=== PATIENT | male | born 1945 | race Caucasian/White ===

== ENCOUNTER 2022-02-15 12:22 | Inpatient (IN) | payer OTHER ==
[2022-02-15 12:51] LABS: Actual Bicarbonate (HCO3a) 17.4 mEq/L (22-28); Base Excess (BEa) -6.5 mEq/L (-2.0 to +3.0); CO2 Tension 29.6 mmHg (35.0-45.0); O2 Tension (PaO2), arterial 65.8 mmHg (> 70.0); pH, Arterial 7.39 (7.35-7.45)
[2022-02-15 12:52] LABS: Carboxyhemoglobin (COHb) 0.3 gm% (0.0-3.0); Hemoglobin (Hb) 10.7 g/dL (14.0-18.0)
[2022-02-15] MEDS ORDERED: Dexamethasone 10 MG/ML VIAL ONE (12:52)
[2022-02-15 12:53] LABS: Analyzer IN Cardio ER; Calcium, Ionized (arterial) 1.16 mmol/L (1.12-1.30); Potassium - ABG Lab 5.24 mmol/L (3.70-5.30); Puncture Site LRA
[2022-02-15 12:55] LABS: Hemoglobin 10.3 g/dL (14.0-18.0); Mean Corpuscular HGB CONC 31.9 g/dL (32.0-36.0); Mean Corpuscular Hemoglobin 30.1 pg (27.0-31.0); Mean Corpuscular Volume 94.2 fL (78.0-98.0); Mean Platelet Volume 8.7 fL (7.4-10.4); Platelet Count 202 thou/uL (130-400); RBC Distribution Width 12.9 % (11.5-14.5); Red Blood Cell (RBC) Count 3.43 mill/uL (4.70-6.10); White Blood Cell (WBC) Count 22.5 thou/uL (4.8-10.8)
[2022-02-15 13:14] LABS: Band 5 % (5-11); Lymphocytes 5 % (21-51); MDiff Complete? YES; Monocytes 3 % (0-10); Neutrophil 87 % (42-75); Platelet Clumps SLIGHT; Platelet Morphology Comment Appears Adequate; Polychromasia SLIGHT = 2-3 cells (100X) (0-2/hpf)
[2022-02-15 13:40] LABS: ALT (SGPT) 16 U/L (8-55); AST (SGOT) 37 U/L (5-34); Alkaline Phosphatase 60 U/L (40-110); Anion Gap 19 mmol/L (10-20); BUN (Urea Nitrogen) 53 mg/dL (8.4-25.7); Bilirubin, Total 0.4 mg/dL (0.2-1.2); Calc. Creatinine Clearance 0 mL/min (70-130); Calcium 8.7 mg/dL (7.8-10.44); Carbon Dioxide 17 mmol/L (23-31); Chloride 109 mmol/L (98-107); Estimated GFR 47; Glucose 293 mg/dL (83-110); Potassium 5.6 mmol/L (3.5-5.1); Sodium 139 mmol/L (136-145)
[2022-02-15 13:47] LABS: CKMB 8.2 ng/mL (0-6.6)
[2022-02-15 15:56] LABS: Lactic Acid 3.4 mmol/L (0.5-2.2)
[2022-02-15] MEDS ORDERED: Sodium Chloride 0.9% 1,000 ML IV SCH (18:16)
[2022-02-15] MEDS ORDERED: Dextrose 50% Abboject 50 ML SYRINGE SLOW IVP PRN (18:16)
[2022-02-15] MEDS ORDERED: Bisacodyl 5 MG TAB PO PRN (18:16)
[2022-02-15] MEDS ORDERED: Benzonatate 100 MG CAP PO PRN (18:16)
[2022-02-15] MEDS ORDERED: REMDESIVIR 200 MG in Sodium Chloride 0.9% 250 ML 210 ML IV SCH (18:16)
[2022-02-15] MEDS ORDERED: Albuterol 200 PUFF (6.7GM INHALER) INH PRN (18:16)
[2022-02-15] MEDS ORDERED: Acetaminophen 325 MG TAB PO PRN (18:16)
[2022-02-15] MEDS ORDERED: Ondansetron PF 4 MG/2 ML Vial IVP PRN (18:16)
[2022-02-15] MEDS ORDERED: Dextrose 5% in Water 1,000 ML IV PRN (18:16)
[2022-02-15] MEDS ORDERED: Midazolam HCl 2 mg/2 ml Vial IVP SCH ×2 (19:00)
[2022-02-15] MEDS: Azithromycin 500 MG in Sodium Chloride 0.9% 250 ML 250 ML IVPB SCH (19:15)
[2022-02-15 19:24] LABS: ALT (SGPT) 20 U/L (8-55); AST (SGOT) 45 U/L (5-34); Albumin 3.3 g/dL (3.4-4.8); Alkaline Phosphatase 69 U/L (40-110); Bilirubin, Direct 0.2 mg/dL (0.1-0.3); Bilirubin, Total 0.4 mg/dL (0.2-1.2); Protein, Total 7.5 g/dL (5.8-8.1)
[2022-02-15 19:35] LABS: Troponin I 2.583 ng/mL (< 0.028)
[2022-02-15 19:35] LABS: Actual Bicarbonate (HCO3a) 14.8 mEq/L (22-28); Base Excess (BEa) -11.2 mEq/L (-2.0 to +3.0); CO2 Tension 33.8 mmHg (35.0-45.0); Calcium, Ionized (arterial) 1.19 mmol/L (1.12-1.30); Carboxyhemoglobin (COHb) 0.5 gm% (0.0-3.0); Hemoglobin (Hb) 11.2 g/dL (14.0-18.0); O2 Tension (PaO2), arterial 62.3 mmHg (> 70.0); Potassium - ABG Lab 5.27 mmol/L (3.70-5.30); pH, Arterial 7.26 (7.35-7.45)
[2022-02-15 20:29] LABS: Puncture Site LRA
[2022-02-15] MEDS ORDERED: Ventilator Sedation Protocol 1 EACH FS SCH (20:45)
[2022-02-15] MEDS ORDERED: Fentanyl BOLUS 250 ML IVPB PRN (21:00)
[2022-02-15] MEDS ORDERED: fentaNYL Citrate/PF 2,000 MCG in Sodium Chloride 0.9% 60 ML IV SCH (21:00)
[2022-02-15] MEDS ORDERED: Propofol BOLUS 1,000 MG/100 ML VIAL IV PRN (21:00)
[2022-02-15] MEDS ORDERED: Morphine 4 MG/ML VIAL SLOW IVP PRN (21:00)
[2022-02-15] MEDS ORDERED: DISCONTINUE PREVIOUS NARCOTIC PAIN MEDICATIONS AND BENZODIAZEPINES FS SCH (21:00)
[2022-02-15] MEDS: Atorvastatin Calcium 10 MG TAB PO SCH (21:29)
[2022-02-15 21:34] LABS: Actual Bicarbonate (HCO3a) 17.2 mEq/L (22-28); Base Excess (BEa) -13.6 mEq/L (-2.0 to +3.0); Carboxyhemoglobin (COHb) 0.1 gm% (0.0-3.0); Hemoglobin (Hb) 11.3 g/dL (14.0-18.0); O2 Tension (PaO2), arterial 81.9 mmHg (> 70.0); Potassium - ABG Lab 5.81 mmol/L (3.70-5.30)
[2022-02-15 21:38] LABS: CO2 Tension 64.5 mmHg (35.0-45.0); pH, Arterial 7.04 (7.35-7.45)
[2022-02-15 21:39] LABS: ALV-art Gradient 550.475 mmHg (0-20); Puncture Site RRA
[2022-02-15] MEDS: HumaLOG 300 UNITS/3 ML VIAL SC PRN (22:02)
[2022-02-15] MEDS: Midazolam HCl 2 mg/2 ml Vial SLOW IVP PRN (22:43)
[2022-02-15 23:51] LABS: Actual Bicarbonate (HCO3a) 14.1 mEq/L (22-28); Base Excess (BEa) -13.4 mEq/L (-2.0 to +3.0); CO2 Tension 38.8 mmHg (35.0-45.0); Calcium, Ionized (arterial) 1.17 mmol/L (1.12-1.30); Carboxyhemoglobin (COHb) 0.3 gm% (0.0-3.0); Hemoglobin (Hb) 10.3 g/dL (14.0-18.0); O2 Tension (PaO2), arterial 77.5 mmHg (> 70.0); Potassium - ABG Lab 5.74 mmol/L (3.70-5.30)
[2022-02-15 23:56] LABS: Puncture Site RRA; pH, Arterial 7.18 (7.35-7.45)
[2022-02-16 00:40] LABS: #Eosinphils 0.1 thou/uL (0.0-0.7); #Lymphocytes 0.6 thou/uL (1.20-3.40); %Basophils 0.1 % (0.0-1.0); %Eosinophils 0.3 % (0.0-10.0); %Lymphocytes 3.1 % (21.0-51.0); %Monocytes 5.8 % (0.0-10.0); %Neutrophils 90.7 % (42.0-75.0); Hemoglobin 9.1 g/dL (14.0-18.0); Mean Corpuscular HGB CONC 31.8 g/dL (32.0-36.0); Mean Corpuscular Hemoglobin 30.7 pg (27.0-31.0); Mean Corpuscular Volume 96.5 fL (78.0-98.0); Mean Platelet Volume 8.8 fL (7.4-10.4); Platelet Count 189 thou/uL (130-400); RBC Distribution Width 13.2 % (11.5-14.5); Red Blood Cell (RBC) Count 2.97 mill/uL (4.70-6.10); White Blood Cell (WBC) Count 17.6 thou/uL (4.8-10.8)
[2022-02-16 00:56] LABS: Lactic Acid 1.7 mmol/L (0.5-2.2)
[2022-02-16 01:00] LABS: Anion Gap 19 mmol/L (10-20); BUN (Urea Nitrogen) 61 mg/dL (8.4-25.7); Calc. Creatinine Clearance 57 mL/min (70-130); Calcium 8.4 mg/dL (7.8-10.44); Carbon Dioxide 13 mmol/L (23-31); Chloride 113 mmol/L (98-107); Estimated GFR 45; Glucose 364 mg/dL (83-110); Magnesium 2.1 mg/dL (1.6-2.6); Potassium 5.9 mmol/L (3.5-5.1); Sodium 139 mmol/L (136-145)
[2022-02-16 01:07] LABS: Critical Call Chem Troponin I RESULT DECREASING; Troponin I 1.745 ng/mL (< 0.028)
[2022-02-16] MEDS ORDERED: Furosemide 20 MG/2 ML VIAL SLOW IVP SCH (01:15)
[2022-02-16] MEDS ORDERED: Sodium Bicarb 50 MEQ/50 ML Abboject 8.4% SYRINGE IVP SCH (01:15)
[2022-02-16] MEDS ORDERED: Insulin Regular 300 UNITS/3 ML VIAL IVP SCH (01:30)
[2022-02-16] MEDS ORDERED: Calcium Gluconate 4.6 MEQ in Sodium Chloride 0.9% 100 ML IVPB SCH (01:30)
[2022-02-16] MEDS ORDERED: Sodium Bicarb 50 MEQ/50 ML VIAL IVP SCH (01:45)
[2022-02-16] MEDS ORDERED: CALCIUM GLUC 1GM/NS 50ML 1 GM in Premix Bag 1 BAG IVPB SCH (01:45)
[2022-02-16 04:31] LABS: ALT (SGPT) 28 U/L (8-55); AST (SGOT) 47 U/L (5-34); Albumin 2.5 g/dL (3.4-4.8); Alkaline Phosphatase 59 U/L (40-110); Bilirubin, Direct 0.1 mg/dL (0.1-0.3); Bilirubin, Total 0.2 mg/dL (0.2-1.2); Protein, Total 5.7 g/dL (5.8-8.1)
[2022-02-16 04:32] LABS: ALT (SGPT) 24 U/L (8-55); AST (SGOT) 46 U/L (5-34); Albumin 2.4 g/dL (3.4-4.8); Alkaline Phosphatase 58 U/L (40-110); Anion Gap 18 mmol/L (10-20); BUN (Urea Nitrogen) 63 mg/dL (8.4-25.7); Bilirubin, Total 0.2 mg/dL (0.2-1.2); Calc. Creatinine Clearance 59 mL/min (70-130); Carbon Dioxide 18 mmol/L (23-31); Chloride 114 mmol/L (98-107); Estimated GFR 46; Globulin 3.4 g/dL (2.4-3.5); Glucose 343 mg/dL (83-110); Magnesium 1.9 mg/dL (1.6-2.6); Potassium 4.8 mmol/L (3.5-5.1); Protein, Total 5.8 g/dL (5.8-8.1); Sodium 145 mmol/L (136-145)
[2022-02-16] MEDS: HumaLOG 300 UNITS/3 ML VIAL SC PRN ×4 (05:11→23:11)
[2022-02-16] MEDS: Propofol 1,000 MG/100 ML VIAL IV PRN ×4 (05:36→23:24)
[2022-02-16] MEDS ORDERED: Vecuronium 10 MG VIAL ONE (07:39)
[2022-02-16] MEDS ORDERED: Fentanyl CADD 100 ML ONE (07:40)
[2022-02-16 07:51] LABS: Actual Bicarbonate (HCO3a) 18.2 mEq/L (22-28); Base Excess (BEa) -6.7 mEq/L (-2.0 to +3.0); CO2 Tension 33.6 mmHg (35.0-45.0); Calcium, Ionized (arterial) 1.19 mmol/L (1.12-1.30); Carboxyhemoglobin (COHb) 0.3 gm% (0.0-3.0); Hemoglobin (Hb) 9.1 g/dL (14.0-18.0); O2 Tension (PaO2), arterial 62.9 mmHg (> 70.0); Potassium - ABG Lab 4.43 mmol/L (3.70-5.30); pH, Arterial 7.35 (7.35-7.45)
[2022-02-16 07:53] LABS: Puncture Site RRA
[2022-02-16] MEDS: Enoxaparin Sodium 40 MG/0.4 ML SYRINGE SC SCH (08:03)
[2022-02-16] MEDS: Ferrous Sulfate 325 MG TAB PO SCH (08:04)
[2022-02-16] MEDS: Ascorbic Acid 500 mg Chewable Tablet PO SCH (08:04)
[2022-02-16] MEDS: Clopidogrel Bisulfate 75 MG TAB PO SCH (08:04)
[2022-02-16] MEDS: Aspirin 81 mg Enteric Coated Tablet PO SCH (08:04)
[2022-02-16] MEDS: Cholecalciferol 1,000 UNITS (25 MCG) TAB PO SCH (08:04)
[2022-02-16] MEDS: Midazolam HCl 2 mg/2 ml Vial SLOW IVP PRN ×3 (08:11→13:44)
[2022-02-16] MEDS: Zinc Sulfate 220 MG CAP PO SCH (08:11)
[2022-02-16] MEDS ORDERED: Dexamethasone 10 MG/ML VIAL SLOW IVP SCH (09:00)
[2022-02-16] MEDS ORDERED: Vecuronium 10 MG VIAL IVP SCH (09:00)
[2022-02-16] MEDS ORDERED: Furosemide 40 MG/4 ML VIAL SLOW IVP SCH (09:00)
[2022-02-16] MEDS: BARICITINIB 2 MG TAB PO SCH (09:00)
[2022-02-16] MEDS ORDERED: Pioglitazone HCl 45 MG TAB PO SCH (09:00)
[2022-02-16] MEDS: Dexamethasone 10 MG/ML VIAL SLOW IVP SCH ×2 (09:36→19:42)
[2022-02-16] MEDS: Vecuronium Bromide 20 MG VIAL IV PRN ×2 (09:38→13:44)
[2022-02-16] MEDS: Azithromycin 500 MG in Sodium Chloride 0.9% 250 ML 250 ML IVPB SCH (17:06)
[2022-02-16] MEDS: cefTRIAXone\\ROCEPHIN 1 GM in Sodium Chloride 0.9% 100 ML IVPB SCH (17:06)
[2022-02-16] MEDS: REMDESIVIR 100 MG in Sodium Chloride 0.9% 250 ML 230 ML IV SCH (18:40)
[2022-02-16] MEDS: Atorvastatin Calcium 10 MG TAB PO SCH (19:25)
[2022-02-16] MEDS: Vecuronium 10 MG VIAL IV PRN (19:43)
[2022-02-16] MEDS ORDERED: Insulin Glargine 30 UNITS/0.3 ML VIAL SC SCH (21:00)
[2022-02-17] MEDS ORDERED: Fentanyl CADD 100 ML ONE (03:49)
[2022-02-17] MEDS: Propofol 1,000 MG/100 ML VIAL IV PRN ×5 (03:57→21:07)
[2022-02-17] MEDS: Vecuronium 10 MG VIAL IV PRN ×2 (03:57→09:07)
[2022-02-17 04:26] LABS: #Lymphocytes 0.5 thou/uL (1.20-3.40); #Monocytes 0.9 thou/uL (0.11-0.59); #Neutrophils 13.6 thou/uL (1.40-6.50); %Basophils 0.1 % (0.0-1.0); %Eosinophils 0.1 % (0.0-10.0); %Lymphocytes 3.3 % (21.0-51.0); %Neutrophils 90.4 % (42.0-75.0); Hemoglobin 9.1 g/dL (14.0-18.0); Mean Corpuscular HGB CONC 33.7 g/dL (32.0-36.0); Mean Corpuscular Hemoglobin 32.5 pg (27.0-31.0); Mean Corpuscular Volume 96.5 fL (78.0-98.0); Mean Platelet Volume 8.3 fL (7.4-10.4); Platelet Count 197 thou/uL (130-400); RBC Distribution Width 13.2 % (11.5-14.5); Red Blood Cell (RBC) Count 2.79 mill/uL (4.70-6.10)
[2022-02-17 04:27] LABS: Hemoglobin A1c 7.2 % (4.0-6.0)
[2022-02-17 04:40] LABS: ALT (SGPT) 26 U/L (8-55); AST (SGOT) 36 U/L (5-34); Albumin 2.5 g/dL (3.4-4.8); Alkaline Phosphatase 76 U/L (40-110); Anion Gap 16 mmol/L (10-20); BUN (Urea Nitrogen) 80 mg/dL (8.4-25.7); Bilirubin, Direct 0.1 mg/dL (0.1-0.3); Bilirubin, Total 0.3 mg/dL (0.2-1.2); Calc. Creatinine Clearance 55 mL/min (70-130); Calcium 8.8 mg/dL (7.8-10.44); Carbon Dioxide 20 mmol/L (23-31); Chloride 112 mmol/L (98-107); Estimated GFR 43; Globulin 3.8 g/dL (2.4-3.5); Glucose 309 mg/dL (83-110); Magnesium 2.1 mg/dL (1.6-2.6); Protein, Total 6.3 g/dL (5.8-8.1); Sodium 143 mmol/L (136-145)
[2022-02-17] MEDS: HumaLOG 300 UNITS/3 ML VIAL SC PRN ×3 (05:03→22:30)
[2022-02-17 07:40] LABS: Actual Bicarbonate (HCO3a) 19.3 mEq/L (22-28); Base Excess (BEa) -7.4 mEq/L (-2.0 to +3.0); CO2 Tension 44.2 mmHg (35.0-45.0); Calcium, Ionized (arterial) 1.21 mmol/L (1.12-1.30); Carboxyhemoglobin (COHb) 0.3 gm% (0.0-3.0); Hemoglobin (Hb) 9.1 g/dL (14.0-18.0); O2 Tension (PaO2), arterial 118.7 mmHg (> 70.0); Potassium - ABG Lab 4.48 mmol/L (3.70-5.30); pH, Arterial 7.26 (7.35-7.45)
[2022-02-17 07:41] LABS: Puncture Site LRA
[2022-02-17] MEDS: Ascorbic Acid 500 mg Chewable Tablet PO SCH (08:38)
[2022-02-17] MEDS: Clopidogrel Bisulfate 75 MG TAB PO SCH (08:38)
[2022-02-17] MEDS: Zinc Sulfate 220 MG CAP PO SCH (08:38)
[2022-02-17] MEDS: BARICITINIB 2 MG TAB PO SCH (08:38)
[2022-02-17] MEDS: Aspirin 81 mg Enteric Coated Tablet PO SCH (08:38)
[2022-02-17] MEDS: Ferrous Sulfate 325 MG TAB PO SCH (08:38)
[2022-02-17] MEDS: Enoxaparin Sodium 40 MG/0.4 ML SYRINGE SC SCH (08:39)
[2022-02-17] MEDS: Cholecalciferol 1,000 UNITS (25 MCG) TAB PO SCH (08:46)
[2022-02-17] MEDS: Dexamethasone 10 MG/ML VIAL SLOW IVP SCH ×2 (08:46→22:34)
[2022-02-17] MEDS: Midazolam HCl 2 mg/2 ml Vial SLOW IVP PRN (10:35)
[2022-02-17] MEDS: NPH, Human Insulin Isophane 300 UNIT/3 ML VIAL SC SCH ×2 (17:19→17:20)
[2022-02-17] MEDS: REMDESIVIR 100 MG in Sodium Chloride 0.9% 250 ML 230 ML IV SCH (18:55)
[2022-02-17] MEDS: cefTRIAXone\\ROCEPHIN 1 GM in Sodium Chloride 0.9% 100 ML IVPB SCH (18:55)
[2022-02-17] MEDS: Azithromycin 500 MG in Sodium Chloride 0.9% 250 ML 250 ML IVPB SCH (18:56)
[2022-02-17] MEDS: Atorvastatin Calcium 10 MG TAB PO SCH (22:34)
[2022-02-18] MEDS ORDERED: Fentanyl CADD 0 ML ONE (00:16)
[2022-02-18] MEDS: HumaLOG 300 UNITS/3 ML VIAL SC PRN ×4 (00:18→16:41)
[2022-02-18] MEDS ORDERED: Insulin NPH Human Isophane 100 UNIT/ML (10 ML VIAL) SC SCH (00:30)
[2022-02-18] MEDS ORDERED: Fentanyl CADD 100 ML ONE (00:33)
[2022-02-18] MEDS: Fentanyl CADD 100 ML IV SCH ×2 (00:37→20:38)
[2022-02-18] MEDS: Propofol 1,000 MG/100 ML VIAL IV PRN ×5 (01:48→17:42)
[2022-02-18 05:09] LABS: Mean Corpuscular HGB CONC 32.6 g/dL (32.0-36.0); Mean Corpuscular Volume 94.9 fL (78.0-98.0); Mean Platelet Volume 8.6 fL (7.4-10.4); Platelet Count 203 thou/uL (130-400); RBC Distribution Width 13.2 % (11.5-14.5); White Blood Cell (WBC) Count 9.6 thou/uL (4.8-10.8)
[2022-02-18 05:51] LABS: ALT (SGPT) 25 U/L (8-55); AST (SGOT) 27 U/L (5-34); Albumin 2.4 g/dL (3.4-4.8); Alkaline Phosphatase 78 U/L (40-110); Anion Gap 17 mmol/L (10-20); BUN (Urea Nitrogen) 103 mg/dL (8.4-25.7); Bilirubin, Direct 0.1 mg/dL (0.1-0.3); Bilirubin, Total 0.2 mg/dL (0.2-1.2); Calc. Creatinine Clearance 49 mL/min (70-130); Calcium 8.7 mg/dL (7.8-10.44); Carbon Dioxide 18 mmol/L (23-31); Chloride 110 mmol/L (98-107); Estimated GFR 37; Glucose 389 mg/dL (83-110); Magnesium 2.4 mg/dL (1.6-2.6); Potassium 4.4 mmol/L (3.5-5.1); Protein, Total 6.1 g/dL (5.8-8.1); Sodium 141 mmol/L (136-145)
[2022-02-18] MEDS: Insulin NPH Human Isophane 100 UNIT/ML (10 ML VIAL) SC SCH ×5 (06:32→23:25)
[2022-02-18 07:34] LABS: Actual Bicarbonate (HCO3a) 22.1 mEq/L (22-28); Base Excess (BEa) -4.1 mEq/L (-2.0 to +3.0); Calcium, Ionized (arterial) 1.22 mmol/L (1.12-1.30); Carboxyhemoglobin (COHb) 0.3 gm% (0.0-3.0); Hemoglobin (Hb) 10.5 g/dL (14.0-18.0); O2 Tension (PaO2), arterial 70.2 mmHg (> 70.0); Potassium - ABG Lab 4.41 mmol/L (3.70-5.30); pH, Arterial 7.31 (7.35-7.45)
[2022-02-18 07:36] LABS: Puncture Site LRA
[2022-02-18] MEDS: NPH, Human Insulin Isophane 300 UNIT/3 ML VIAL SC SCH (08:31)
[2022-02-18] MEDS: Enoxaparin Sodium 40 MG/0.4 ML SYRINGE SC SCH (09:38)
[2022-02-18] MEDS: Pantoprazole 40 MG VIAL IVP SCH (09:38)
[2022-02-18] MEDS: Ascorbic Acid 500 mg Chewable Tablet PO SCH (09:39)
[2022-02-18] MEDS: Dexamethasone 10 MG/ML VIAL SLOW IVP SCH ×2 (09:39→21:27)
[2022-02-18] MEDS: Cholecalciferol 1,000 UNITS (25 MCG) TAB PO SCH (09:40)
[2022-02-18] MEDS: Zinc Sulfate 220 MG CAP PO SCH (09:40)
[2022-02-18] MEDS: Ferrous Sulfate 325 MG TAB PO SCH (09:40)
[2022-02-18] MEDS: Clopidogrel Bisulfate 75 MG TAB PO SCH (09:40)
[2022-02-18] MEDS: Aspirin 81 mg Enteric Coated Tablet PO SCH (09:40)
[2022-02-18] MEDS: BARICITINIB 2 MG TAB PO SCH (09:40)
[2022-02-18] MEDS: Cefepime 1 GM in Sodium Chloride 0.9% 100 ML IVPB SCH ×2 (10:55→23:26)
[2022-02-18] MEDS ORDERED: Furosemide 40 MG/4 ML VIAL SLOW IVP SCH (11:00)
[2022-02-18] MEDS ORDERED: VANCOMYCIN 2 GRAM/500 ML BAG 2 GM in Premix Bag 1 BAG IVPB SCH (12:00)
[2022-02-18] MEDS: metroNIDAZOLE 500 MG in Premix Bag 1 BAG IVPB SCH ×2 (14:09→21:42)
[2022-02-18] MEDS: REMDESIVIR 100 MG in Sodium Chloride 0.9% 250 ML 230 ML IV SCH (18:02)
[2022-02-18] MEDS: Midazolam HCl 2 mg/2 ml Vial SLOW IVP PRN (19:40)
[2022-02-18] MEDS ORDERED: Vancomycin 1 GM in Premix Bag 1 BAG IVPB SCH (21:00)
[2022-02-18] MEDS: Atorvastatin Calcium 10 MG TAB PO SCH (21:27)
[2022-02-19] MEDS: Propofol 1,000 MG/100 ML VIAL IV PRN ×4 (00:52→13:28)
[2022-02-19 04:28] LABS: Hemoglobin 11.3 g/dL (14.0-18.0); Mean Corpuscular HGB CONC 32.3 g/dL (32.0-36.0); Mean Corpuscular Hemoglobin 30.4 pg (27.0-31.0); Mean Corpuscular Volume 93.9 fL (78.0-98.0); Platelet Count 223 thou/uL (130-400); RBC Distribution Width 13.4 % (11.5-14.5); Red Blood Cell (RBC) Count 3.71 mill/uL (4.70-6.10); White Blood Cell (WBC) Count 13.9 thou/uL (4.8-10.8)
[2022-02-19 04:51] LABS: ALT (SGPT) 24 U/L (8-55); AST (SGOT) 31 U/L (5-34); Albumin 2.4 g/dL (3.4-4.8); Alkaline Phosphatase 73 U/L (40-110); Anion Gap 18 mmol/L (10-20); BUN (Urea Nitrogen) 117 mg/dL (8.4-25.7); Bilirubin, Direct 0.1 mg/dL (0.1-0.3); Bilirubin, Total 0.2 mg/dL (0.2-1.2); Calc. Creatinine Clearance 44 mL/min (70-130); Calcium 8.7 mg/dL (7.8-10.44); Carbon Dioxide 19 mmol/L (23-31); Chloride 112 mmol/L (98-107); Estimated GFR 32; Glucose 347 mg/dL (83-110); Potassium 4.8 mmol/L (3.5-5.1); Protein, Total 6.6 g/dL (5.8-8.1); Sodium 144 mmol/L (136-145)
[2022-02-19] MEDS: HumaLOG 300 UNITS/3 ML VIAL SC PRN ×4 (05:02→21:56)
[2022-02-19] MEDS: Insulin NPH Human Isophane 100 UNIT/ML (10 ML VIAL) SC SCH ×3 (05:11→17:00)
[2022-02-19] MEDS: metroNIDAZOLE 500 MG in Premix Bag 1 BAG IVPB SCH ×3 (05:12→21:20)
[2022-02-19] MEDS ORDERED: Fentanyl CADD 100 ML ONE (06:59)
[2022-02-19] MEDS: Ferrous Sulfate 325 MG TAB PO SCH (07:07)
[2022-02-19 07:53] LABS: Actual Bicarbonate (HCO3a) 22.6 mEq/L (22-28); Base Excess (BEa) -3.9 mEq/L (-2.0 to +3.0); CO2 Tension 47.1 mmHg (35.0-45.0); Calcium, Ionized (arterial) 1.22 mmol/L (1.12-1.30); Carboxyhemoglobin (COHb) 0.3 gm% (0.0-3.0); Hemoglobin (Hb) 10.1 g/dL (14.0-18.0); Potassium - ABG Lab 4.37 mmol/L (3.70-5.30)
[2022-02-19 08:09] LABS: O2 Tension (PaO2), arterial 56.1 mmHg (> 70.0)
[2022-02-19 08:10] LABS: ALV-art Gradient 277.175 mmHg (0-20); Puncture Site RRA
[2022-02-19] MEDS: Zinc Sulfate 220 MG CAP PO SCH (09:43)
[2022-02-19] MEDS: Aspirin 81 mg Enteric Coated Tablet PO SCH (09:43)
[2022-02-19] MEDS: Enoxaparin Sodium 40 MG/0.4 ML SYRINGE SC SCH (09:43)
[2022-02-19] MEDS: Pantoprazole 40 MG VIAL IVP SCH (09:43)
[2022-02-19] MEDS: Ascorbic Acid 500 mg Chewable Tablet PO SCH (09:43)
[2022-02-19] MEDS: Clopidogrel Bisulfate 75 MG TAB PO SCH (09:51)
[2022-02-19] MEDS: Dexamethasone 10 MG/ML VIAL SLOW IVP SCH ×2 (09:51→21:20)
[2022-02-19] MEDS: Cholecalciferol 1,000 UNITS (25 MCG) TAB PO SCH (09:51)
[2022-02-19] MEDS: Cefepime 1 GM in Sodium Chloride 0.9% 100 ML IVPB SCH ×2 (10:14→21:27)
[2022-02-19] MEDS ORDERED: VANCOMYCIN 1.25 GM/250 ML BAG 1.25 GM in Premix Bag 1 BAG IVPB SCH (12:00)
[2022-02-19] MEDS: REMDESIVIR 100 MG in Sodium Chloride 0.9% 250 ML 230 ML IV SCH (17:01)
[2022-02-19] MEDS ORDERED: Insulin NPH Human Isophane 100 UNIT/ML (10 ML VIAL) SC SCH (18:30)
[2022-02-19] MEDS: Atorvastatin Calcium 10 MG TAB PO SCH (21:20)
[2022-02-20] MEDS: Insulin NPH Human Isophane 100 UNIT/ML (10 ML VIAL) SC SCH ×4 (00:19→18:26)
[2022-02-20] MEDS: Propofol 1,000 MG/100 ML VIAL IV PRN ×4 (00:30→21:11)
[2022-02-20] MEDS: Fentanyl CADD 100 ML IV SCH ×2 (00:30→16:30)
[2022-02-20] MEDS: HumaLOG 300 UNITS/3 ML VIAL SC PRN ×4 (04:14→22:15)
[2022-02-20] MEDS: metroNIDAZOLE 500 MG in Premix Bag 1 BAG IVPB SCH ×3 (06:22→21:12)
[2022-02-20 07:24] LABS: Actual Bicarbonate (HCO3a) 21.2 mEq/L (22-28); Base Excess (BEa) -3.4 mEq/L (-2.0 to +3.0); CO2 Tension 36.1 mmHg (35.0-45.0); Calcium, Ionized (arterial) 1.21 mmol/L (1.12-1.30); Carboxyhemoglobin (COHb) 0.4 gm% (0.0-3.0); Hemoglobin (Hb) 9.3 g/dL (14.0-18.0); O2 Tension (PaO2), arterial 70.3 mmHg (> 70.0); pH, Arterial 7.39 (7.35-7.45)
[2022-02-20 07:25] LABS: ALV-art Gradient 198.295 mmHg (0-20); Puncture Site RRA
[2022-02-20] MEDS: Dexamethasone 10 MG/ML VIAL SLOW IVP SCH ×2 (08:52→21:10)
[2022-02-20] MEDS: Enoxaparin Sodium 40 MG/0.4 ML SYRINGE SC SCH (08:52)
[2022-02-20] MEDS: Pantoprazole 40 MG VIAL IVP SCH (08:52)
[2022-02-20] MEDS: Ascorbic Acid 500 mg Chewable Tablet PO SCH (08:53)
[2022-02-20] MEDS: Zinc Sulfate 220 MG CAP PO SCH (08:53)
[2022-02-20] MEDS: Clopidogrel Bisulfate 75 MG TAB PO SCH (08:53)
[2022-02-20] MEDS: Cholecalciferol 1,000 UNITS (25 MCG) TAB PO SCH (08:53)
[2022-02-20] MEDS: Ferrous Sulfate 325 MG TAB PO SCH (08:54)
[2022-02-20] MEDS: Aspirin 81 mg Enteric Coated Tablet PO SCH (08:54)
[2022-02-20] MEDS: Cefepime 1 GM in Sodium Chloride 0.9% 100 ML IVPB SCH ×2 (10:32→21:10)
[2022-02-20] MEDS: Atorvastatin Calcium 10 MG TAB PO SCH (21:10)
[2022-02-21] MEDS: Insulin NPH Human Isophane 100 UNIT/ML (10 ML VIAL) SC SCH ×5 (00:07→22:27)
[2022-02-21] MEDS: Propofol 1,000 MG/100 ML VIAL IV PRN ×5 (03:01→17:07)
[2022-02-21] MEDS: HumaLOG 300 UNITS/3 ML VIAL SC PRN ×2 (03:39→10:10)
[2022-02-21 04:26] LABS: ALT (SGPT) 19 U/L (8-55); AST (SGOT) 21 U/L (5-34); Albumin 2.2 g/dL (3.4-4.8); Alkaline Phosphatase 72 U/L (40-110); Anion Gap 14 mmol/L (10-20); Bilirubin, Total 0.3 mg/dL (0.2-1.2); Calc. Creatinine Clearance 47 mL/min (70-130); Calcium 8.2 mg/dL (7.8-10.44); Carbon Dioxide 20 mmol/L (23-31); Chloride 118 mmol/L (98-107); Estimated GFR 36; Globulin 3.8 g/dL (2.4-3.5); Glucose 257 mg/dL (83-110); Potassium 4.7 mmol/L (3.5-5.1); Sodium 147 mmol/L (136-145)
[2022-02-21 04:38] LABS: BUN (Urea Nitrogen) 109 mg/dL (8.4-25.7)
[2022-02-21] MEDS: metroNIDAZOLE 500 MG in Premix Bag 1 BAG IVPB SCH ×3 (05:00→22:00)
[2022-02-21 05:05] LABS: Band 9 % (5-11); Hemoglobin 9.9 g/dL (14.0-18.0); Lymphocytes 3 % (21-51); MDiff Complete? YES; Mean Corpuscular Hemoglobin 30.2 pg (27.0-31.0); Mean Corpuscular Volume 94.3 fL (78.0-98.0); Mean Platelet Volume 8.4 fL (7.4-10.4); Monocytes 3 % (0-10); Myelocyte 3 % (0-0); Neutrophil 82 % (42-75); Platelet Count 218 thou/uL (130-400); RBC Distribution Width 13.3 % (11.5-14.5); Red Blood Cell (RBC) Count 3.27 mill/uL (4.70-6.10); White Blood Cell (WBC) Count 14.1 thou/uL (4.8-10.8)
[2022-02-21 05:15] LABS: Magnesium 2.8 mg/dL (1.6-2.6)
[2022-02-21 07:43] LABS: Base Excess (BEa) -5.8 mEq/L (-2.0 to +3.0); CO2 Tension 40.2 mmHg (35.0-45.0); Calcium, Ionized (arterial) 1.26 mmol/L (1.12-1.30); Carboxyhemoglobin (COHb) 0.5 gm% (0.0-3.0); Hemoglobin (Hb) 11.3 g/dL (14.0-18.0); O2 Tension (PaO2), arterial 86.3 mmHg (> 70.0); Potassium - ABG Lab 4.27 mmol/L (3.70-5.30); pH, Arterial 7.31 (7.35-7.45)
[2022-02-21 07:44] LABS: Puncture Site RRA
[2022-02-21] MEDS ORDERED: Diltiazem 125 MG in Sodium Chloride 0.9% 100 ML IVPB SCH (08:15)
[2022-02-21] MEDS ORDERED: Fentanyl CADD 100 ML ONE (09:09)
[2022-02-21] MEDS: Pantoprazole 40 MG VIAL IVP SCH (09:16)
[2022-02-21] MEDS: Zinc Sulfate 220 MG CAP PO SCH (09:18)
[2022-02-21] MEDS: Dexamethasone 10 MG/ML VIAL SLOW IVP SCH ×2 (09:18→21:59)
[2022-02-21] MEDS: Aspirin 81 mg Enteric Coated Tablet PO SCH (09:19)
[2022-02-21] MEDS: Ferrous Sulfate 325 MG TAB PO SCH (09:19)
[2022-02-21] MEDS: Clopidogrel Bisulfate 75 MG TAB PO SCH (09:20)
[2022-02-21] MEDS: Cholecalciferol 1,000 UNITS (25 MCG) TAB PO SCH (09:20)
[2022-02-21] MEDS: Ascorbic Acid 500 mg Chewable Tablet PO SCH (09:20)
[2022-02-21] MEDS: Enoxaparin Sodium 40 MG/0.4 ML SYRINGE SC SCH (09:22)
[2022-02-21] MEDS: Cefepime 1 GM in Sodium Chloride 0.9% 100 ML IVPB SCH ×2 (09:58→21:58)
[2022-02-21] MEDS: Enoxaparin Sodium 100 MG/ML SYRINGE SC SCH (21:59)
[2022-02-21] MEDS: Atorvastatin Calcium 10 MG TAB PO SCH (21:59)
[2022-02-22] MEDS: Propofol 1,000 MG/100 ML VIAL IV PRN ×3 (01:14→16:15)
[2022-02-22] MEDS: metroNIDAZOLE 500 MG in Premix Bag 1 BAG IVPB SCH ×3 (05:35→22:12)
[2022-02-22] MEDS: Fentanyl CADD 100 ML IV SCH (05:36)
[2022-02-22 08:14] LABS: Actual Bicarbonate (HCO3a) 19.4 mEq/L (22-28); Base Excess (BEa) -6.1 mEq/L (-2.0 to +3.0); Calcium, Ionized (arterial) 1.22 mmol/L (1.12-1.30); Carboxyhemoglobin (COHb) 0.7 gm% (0.0-3.0); Hemoglobin (Hb) 11.8 g/dL (14.0-18.0); O2 Tension (PaO2), arterial 64.7 mmHg (> 70.0); Potassium - ABG Lab 4.51 mmol/L (3.70-5.30); pH, Arterial 7.33 (7.35-7.45)
[2022-02-22] MEDS: Insulin NPH Human Isophane 100 UNIT/ML (10 ML VIAL) SC SCH ×3 (08:16→18:19)
[2022-02-22 08:19] LABS: Puncture Site RRA
[2022-02-22] MEDS: Cholecalciferol 1,000 UNITS (25 MCG) TAB PO SCH (09:19)
[2022-02-22] MEDS: Dexamethasone 10 MG/ML VIAL SLOW IVP SCH (09:19)
[2022-02-22] MEDS: Ascorbic Acid 500 mg Chewable Tablet PO SCH (09:19)
[2022-02-22] MEDS: Enoxaparin Sodium 100 MG/ML SYRINGE SC SCH ×2 (09:19→21:28)
[2022-02-22] MEDS: Pantoprazole 40 MG VIAL IVP SCH (09:19)
[2022-02-22] MEDS: Zinc Sulfate 220 MG CAP PO SCH (09:19)
[2022-02-22] MEDS: Ferrous Sulfate 325 MG TAB PO SCH (09:19)
[2022-02-22] MEDS: Clopidogrel Bisulfate 75 MG TAB PO SCH (09:19)
[2022-02-22] MEDS: Aspirin 81 mg Enteric Coated Tablet PO SCH (09:19)
[2022-02-22 10:41] LABS: Anion Gap 14 mmol/L (10-20); BUN (Urea Nitrogen) 124 mg/dL (8.4-25.7); Calc. Creatinine Clearance 55 mL/min (70-130); Calcium 8.5 mg/dL (7.8-10.44); Carbon Dioxide 17 mmol/L (23-31); Chloride 122 mmol/L (98-107); Estimated GFR 44; Glucose 184 mg/dL (83-110); Potassium 4.7 mmol/L (3.5-5.1); Sodium 148 mmol/L (136-145)
[2022-02-22] MEDS: Cefepime 1 GM in Sodium Chloride 0.9% 100 ML IVPB SCH ×2 (10:49→21:28)
[2022-02-22] MEDS: Atorvastatin Calcium 10 MG TAB PO SCH (21:28)
[2022-02-22] MEDS: HumaLOG 300 UNITS/3 ML VIAL SC PRN (22:11)
[2022-02-23] MEDS ORDERED: Fentanyl CADD 100 ML ONE ×2 (01:04→18:13)
[2022-02-23] MEDS: Fentanyl CADD 100 ML IV SCH ×2 (01:09→18:17)
[2022-02-23] MEDS: Insulin NPH Human Isophane 100 UNIT/ML (10 ML VIAL) SC SCH ×4 (01:56→18:17)
[2022-02-23 04:38] LABS: Anion Gap 13 mmol/L (10-20); BUN (Urea Nitrogen) 123 mg/dL (8.4-25.7); Calc. Creatinine Clearance 56 mL/min (70-130); Calcium 8.3 mg/dL (7.8-10.44); Carbon Dioxide 21 mmol/L (23-31); Chloride 123 mmol/L (98-107); Estimated GFR 44; Glucose 131 mg/dL (83-110); Potassium 4.5 mmol/L (3.5-5.1); Sodium 152 mmol/L (136-145)
[2022-02-23] MEDS: metroNIDAZOLE 500 MG in Premix Bag 1 BAG IVPB SCH ×3 (06:13→22:19)
[2022-02-23 06:44] LABS: INR-International Normal Ratio 1.6; Prothrombin Time 19.6 sec (12.0-14.7)
[2022-02-23 06:45] LABS: PTT 28.1 sec (22.9-36.1)
[2022-02-23 08:08] LABS: Magnesium 2.9 mg/dL (1.6-2.6)
[2022-02-23 08:21] LABS: Troponin I 2.315 ng/mL (< 0.028)
[2022-02-23] MEDS: Cholecalciferol 1,000 UNITS (25 MCG) TAB PO SCH (08:34)
[2022-02-23] MEDS: Dexamethasone 10 MG/ML VIAL SLOW IVP SCH (08:35)
[2022-02-23] MEDS: Ferrous Sulfate 325 MG TAB PO SCH (08:35)
[2022-02-23] MEDS: Ascorbic Acid 500 mg Chewable Tablet PO SCH (08:35)
[2022-02-23] MEDS: Zinc Sulfate 220 MG CAP PO SCH (08:35)
[2022-02-23] MEDS: Aspirin Chewable 81 MG TAB PO SCH (08:35)
[2022-02-23] MEDS: Pantoprazole 40 MG VIAL IVP SCH (08:36)
[2022-02-23] MEDS: Enoxaparin Sodium 100 MG/ML SYRINGE SC SCH ×2 (08:36→21:00)
[2022-02-23] MEDS: Clopidogrel Bisulfate 75 MG TAB PO SCH (08:36)
[2022-02-23 09:28] LABS: Band 3 % (5-11); Hemoglobin 10.8 g/dL (14.0-18.0); Lymphocytes 5 % (21-51); MDiff Complete? YES; Mean Corpuscular HGB CONC 32.6 g/dL (32.0-36.0); Mean Corpuscular Hemoglobin 31.4 pg (27.0-31.0); Mean Corpuscular Volume 96.4 fL (78.0-98.0); Mean Platelet Volume 8.8 fL (7.4-10.4); Metamyelocyte 1 % (0-0); Monocytes 3 % (0-10); Neutrophil 88 % (42-75); Platelet Count 327 thou/uL (130-400); Platelet Morphology Comment Appears Adequate; Poikilocytosis SLIGHT = 6-15 cells (100X) (0-5/hpf); Polychromasia SLIGHT = 2-3 cells (100X) (0-2/hpf); RBC Distribution Width 14.2 % (11.5-14.5); Red Blood Cell (RBC) Count 3.44 mill/uL (4.70-6.10); White Blood Cell (WBC) Count 30.1 thou/uL (4.8-10.8)
[2022-02-23] MEDS: Cefepime 1 GM in Sodium Chloride 0.9% 100 ML IVPB SCH ×2 (09:53→21:33)
[2022-02-23 10:26] LABS: Band 3 % (5-11); Hemoglobin 10.6 g/dL (14.0-18.0); Lymphocytes 4 % (21-51); MDiff Complete? YES; Mean Corpuscular HGB CONC 32.8 g/dL (32.0-36.0); Mean Corpuscular Hemoglobin 31.8 pg (27.0-31.0); Mean Corpuscular Volume 96.9 fL (78.0-98.0); Mean Platelet Volume 9.1 fL (7.4-10.4); Monocytes 1 % (0-10); Neutrophil 92 % (42-75); Platelet Count 299 thou/uL (130-400); Platelet Morphology Comment Appears Adequate; RBC Distribution Width 14.2 % (11.5-14.5); RBC Morphology Normal; Red Blood Cell (RBC) Count 3.33 mill/uL (4.70-6.10)
[2022-02-23 11:11] LABS: Actual Bicarbonate (HCO3a) 19.3 mEq/L (22-28); Base Excess (BEa) -5.9 mEq/L (-2.0 to +3.0); CO2 Tension 36.8 mmHg (35.0-45.0); Calcium, Ionized (arterial) 1.25 mmol/L (1.12-1.30); Carboxyhemoglobin (COHb) 0.1 gm% (0.0-3.0); Hemoglobin (Hb) 9.9 g/dL (14.0-18.0); O2 Tension (PaO2), arterial 65.5 mmHg (> 70.0); Potassium - ABG Lab 4.56 mmol/L (3.70-5.30); pH, Arterial 7.34 (7.35-7.45)
[2022-02-23 11:13] LABS: Puncture Site RRA
[2022-02-23] MEDS: Vancomycin 1.5 GRAM/300 ML BAG 1.5 GM in Premix Bag 1 BAG IVPB SCH (11:48)
[2022-02-23] MEDS: Propofol 1,000 MG/100 ML VIAL IV PRN ×2 (13:32→19:55)
[2022-02-23] MEDS ORDERED: VANCOMYCIN 1.25 GM/250 ML BAG IVPB SCH (21:00)
[2022-02-23] MEDS: Atorvastatin Calcium 10 MG TAB PO SCH (21:33)
[2022-02-23] MEDS: HumaLOG 300 UNITS/3 ML VIAL SC PRN (22:50)
[2022-02-24] MEDS: Insulin NPH Human Isophane 100 UNIT/ML (10 ML VIAL) SC SCH ×5 (00:05→23:46)
[2022-02-24] MEDS: Propofol 1,000 MG/100 ML VIAL IV PRN ×4 (02:17→20:26)
[2022-02-24] MEDS: HumaLOG 300 UNITS/3 ML VIAL SC PRN ×3 (04:28→16:43)
[2022-02-24] MEDS: metroNIDAZOLE 500 MG in Premix Bag 1 BAG IVPB SCH ×3 (05:22→20:13)
[2022-02-24 05:53] LABS: Anion Gap 16 mmol/L (10-20); BUN (Urea Nitrogen) Greater than 125 mg/dL (8.4-25.7); Calc. Creatinine Clearance 47 mL/min (70-130); Carbon Dioxide 11 mmol/L (23-31); Chloride 127 mmol/L (98-107); Estimated GFR 35; Glucose 240 mg/dL (83-110); Potassium 6.1 mmol/L (3.5-5.1); Sodium 148 mmol/L (136-145)
[2022-02-24 07:03] LABS: Hemoglobin 9.3 g/dL (14.0-18.0); Mean Corpuscular HGB CONC 31.1 g/dL (32.0-36.0); Mean Corpuscular Volume 96.5 fL (78.0-98.0); Mean Platelet Volume 8.7 fL (7.4-10.4); Platelet Count 296 thou/uL (130-400); RBC Distribution Width 14.6 % (11.5-14.5); Red Blood Cell (RBC) Count 3.09 mill/uL (4.70-6.10); White Blood Cell (WBC) Count 27.1 thou/uL (4.8-10.8)
[2022-02-24 07:20] LABS: Anion Gap 14 mmol/L (10-20); Calc. Creatinine Clearance 47 mL/min (70-130); Calcium 8.7 mg/dL (7.8-10.44); Carbon Dioxide 17 mmol/L (23-31); Chloride 123 mmol/L (98-107); Estimated GFR 35; Glucose 247 mg/dL (83-110); Potassium 5.3 mmol/L (3.5-5.1); Sodium 149 mmol/L (136-145)
[2022-02-24 07:32] LABS: BUN (Urea Nitrogen) 123 mg/dL (8.4-25.7)
[2022-02-24] MEDS: Clopidogrel Bisulfate 75 MG TAB PO SCH (07:52)
[2022-02-24] MEDS: Aspirin Chewable 81 MG TAB PO SCH (07:52)
[2022-02-24] MEDS: Enoxaparin Sodium 100 MG/ML SYRINGE SC SCH ×2 (07:53→20:12)
[2022-02-24] MEDS: Cefepime 1 GM in Sodium Chloride 0.9% 100 ML IVPB SCH ×2 (08:29→20:12)
[2022-02-24] MEDS: Cholecalciferol 1,000 UNITS (25 MCG) TAB PO SCH (08:29)
[2022-02-24] MEDS: Ascorbic Acid 500 mg Chewable Tablet PO SCH (08:29)
[2022-02-24] MEDS: Dexamethasone 10 MG/ML VIAL SLOW IVP SCH (08:29)
[2022-02-24] MEDS: Pantoprazole 40 MG VIAL IVP SCH (08:30)
[2022-02-24] MEDS: Ferrous Sulfate 325 MG TAB PO SCH (08:30)
[2022-02-24] MEDS: Zinc Sulfate 220 MG CAP PO SCH (08:30)
[2022-02-24 10:07] LABS: Band 6 % (5-11); Lymphocytes 2 % (21-51); MDiff Complete? YES; Metamyelocyte 4 % (0-0); Monocytes 4 % (0-10); Myelocyte 1 % (0-0); Neutrophil 82 % (42-75); Platelet Morphology Comment Appears Adequate; Polychromasia SLIGHT = 2-3 cells (100X) (0-2/hpf); Reactive Lymphocytes 1 % (0-10)
[2022-02-24] MEDS: Fentanyl CADD 100 ML IV SCH (11:50)
[2022-02-24] MEDS: Dextrose 5% in Water 1,000 ML IV SCH (11:51)
[2022-02-24] MEDS: Vancomycin 1.5 GRAM/300 ML BAG 1.5 GM in Premix Bag 1 BAG IVPB SCH (12:58)
[2022-02-24] MEDS: Atorvastatin Calcium 10 MG TAB PO SCH (20:12)
[2022-02-25] MEDS: Propofol 1,000 MG/100 ML VIAL IV PRN ×2 (03:23→09:30)
[2022-02-25 04:37] LABS: Vancomycin, Trough 26.5 ug/mL
[2022-02-25] MEDS: metroNIDAZOLE 500 MG in Premix Bag 1 BAG IVPB SCH (05:44)
[2022-02-25] MEDS: Insulin NPH Human Isophane 100 UNIT/ML (10 ML VIAL) SC SCH (05:45)
[2022-02-25] MEDS: Dextrose 5% in Water 1,000 ML IV SCH ×2 (05:45→17:39)
[2022-02-25] MEDS: HumaLOG 300 UNITS/3 ML VIAL SC PRN ×2 (05:47→18:06)
[2022-02-25 05:53] LABS: Anion Gap 12 mmol/L (10-20); Calc. Creatinine Clearance 47 mL/min (70-130); Calcium 8.7 mg/dL (7.8-10.44); Carbon Dioxide 19 mmol/L (23-31); Chloride 121 mmol/L (98-107); Estimated GFR 35; Glucose 270 mg/dL (83-110); Potassium 4.5 mmol/L (3.5-5.1); Sodium 147 mmol/L (136-145)
[2022-02-25 06:04] LABS: BUN (Urea Nitrogen) 123 mg/dL (8.4-25.7)
[2022-02-25] MEDS: Cholecalciferol 1,000 UNITS (25 MCG) TAB PO SCH (08:00)
[2022-02-25] MEDS: Aspirin Chewable 81 MG TAB PO SCH (08:00)
[2022-02-25] MEDS: Dexamethasone 10 MG/ML VIAL SLOW IVP SCH (08:00)
[2022-02-25] MEDS: Pantoprazole 40 MG VIAL IVP SCH (08:00)
[2022-02-25] MEDS: Ascorbic Acid 500 mg Chewable Tablet PO SCH (08:00)
[2022-02-25] MEDS: Zinc Sulfate 220 MG CAP PO SCH (08:01)
[2022-02-25] MEDS: Ferrous Sulfate 325 MG TAB PO SCH (08:01)
[2022-02-25] MEDS: Fentanyl CADD 100 ML IV SCH (08:13)
[2022-02-25] MEDS: Clopidogrel Bisulfate 75 MG TAB PO SCH (08:58)
[2022-02-25] MEDS: Enoxaparin Sodium 100 MG/ML SYRINGE SC SCH (08:59)
[2022-02-25] MEDS: Cefepime 1 GM in Sodium Chloride 0.9% 100 ML IVPB SCH (10:43)
[2022-02-25 11:57] LABS: Vancomycin, Trough 23.4 ug/mL
[2022-02-25] MEDS ORDERED: Insulin Glargine 30 UNITS/0.3 ML VIAL SC SCH (12:00)
[2022-02-25 12:04] LABS: Platelet Count 248 thou/uL (130-400)
[2022-02-25 12:07] LABS: INR-International Normal Ratio 1.5; Prothrombin Time 18.2 sec (12.0-14.7)
[2022-02-25 12:12] LABS: Fibrinogen 392 mg/dL (253-463)
[2022-02-25 12:17] LABS: D-Dimer Test 7.64 *mcg/mL (0.27-0.43)
[2022-02-25] MEDS: Vancomycin 1.5 GRAM/300 ML BAG 1.5 GM in Premix Bag 1 BAG IVPB SCH (13:11)
[2022-02-25 17:47] LABS: Vancomycin, Random 20.5 ug/mL (See Comment)
[2022-02-25] MEDS: VANCOMYCIN 1.25 GM/250 ML BAG 1.25 GM in Premix Bag 1 BAG IVPB SCH (18:39)
[2022-02-25] MEDS ORDERED: Enoxaparin Sodium 100 MG/ML SYRINGE SC SCH (21:00)
[2022-02-25] MEDS: Atorvastatin Calcium 10 MG TAB PO SCH (21:27)
[2022-02-25] MEDS: Insulin Glargine 30 UNITS/0.3 ML VIAL SC SCH (21:27)
[2022-02-26] MEDS: HumaLOG 300 UNITS/3 ML VIAL SC PRN ×2 (06:50→17:53)
[2022-02-26] MEDS: Pantoprazole 40 MG VIAL IVP SCH (08:36)
[2022-02-26] MEDS: Aspirin Chewable 81 MG TAB PO SCH (08:36)
[2022-02-26] MEDS: Insulin Glargine 30 UNITS/0.3 ML VIAL SC SCH ×2 (08:37→22:30)
[2022-02-26] MEDS: Zinc Sulfate 220 MG CAP PO SCH (08:38)
[2022-02-26] MEDS: Ascorbic Acid 500 mg Chewable Tablet PO SCH (08:39)
[2022-02-26] MEDS: Ferrous Sulfate 325 MG TAB PO SCH (08:39)
[2022-02-26] MEDS: Cholecalciferol 1,000 UNITS (25 MCG) TAB PO SCH (08:47)
[2022-02-26] MEDS: Dexamethasone 10 MG/ML VIAL SLOW IVP SCH (08:48)
[2022-02-26] MEDS ORDERED: Clopidogrel Bisulfate 75 MG TAB PO SCH (09:00)
[2022-02-26] MEDS ORDERED: Fentanyl CADD 100 ML ONE (10:20)
[2022-02-26] MEDS: Fentanyl CADD 100 ML IV SCH (10:33)
[2022-02-26 10:44] LABS: Anion Gap 13 mmol/L (10-20); BUN (Urea Nitrogen) Greater than 125 mg/dL (8.4-25.7); Calc. Creatinine Clearance 50 mL/min (70-130); Calcium 8.7 mg/dL (7.8-10.44); Carbon Dioxide 16 mmol/L (23-31); Chloride 122 mmol/L (98-107); Estimated GFR 38; Glucose 166 mg/dL (83-110); Potassium 5.6 mmol/L (3.5-5.1); Sodium 145 mmol/L (136-145)
[2022-02-26] MEDS: Rocuronium Bromide 10 MG/ML (10ML VIAL) ONE ×2 (13:10→14:01)
[2022-02-26] MEDS: Midazolam HCl 2 mg/2 ml Vial SLOW IVP PRN (14:00)
[2022-02-26] MEDS: Dextrose 5% in Water 1,000 ML IV SCH (14:01)
[2022-02-26] MEDS ORDERED: LOKELMA 10 GM PACKET PO SCH (17:00)
[2022-02-26] MEDS: Sodium Bicarbonate 150 MEQ in Dextrose 5% in Water 1,000 ML IV SCH (17:07)
[2022-02-26 18:34] LABS: Anion Gap 10 mmol/L (10-20); Calc. Creatinine Clearance 42 mL/min (70-130); Calcium 8.3 mg/dL (7.8-10.44); Carbon Dioxide 20 mmol/L (23-31); Chloride 120 mmol/L (98-107); Estimated GFR 31; Glucose 353 mg/dL (83-110); Potassium 5.9 mmol/L (3.5-5.1); Sodium 144 mmol/L (136-145)
[2022-02-26 18:45] LABS: BUN (Urea Nitrogen) 119 mg/dL (8.4-25.7)
[2022-02-26] MEDS ORDERED: Enoxaparin Sodium 40 MG/0.4 ML SYRINGE SC SCH (21:00)
[2022-02-26] MEDS: VANCOMYCIN 1.25 GM/250 ML BAG 1.25 GM in Premix Bag 1 BAG IVPB SCH (21:15)
[2022-02-26] MEDS: Atorvastatin Calcium 10 MG TAB PO SCH (21:40)
[2022-02-26 22:40] LABS: Potassium 5.2 mmol/L (3.5-5.1)
[2022-02-27] MEDS: HumaLOG 300 UNITS/3 ML VIAL SC PRN ×3 (00:38→11:07)
[2022-02-27] MEDS: Sodium Bicarbonate 150 MEQ in Dextrose 5% in Water 1,000 ML IV SCH ×3 (01:37→10:28)
[2022-02-27 05:51] LABS: Anion Gap 12 mmol/L (10-20); Calc. Creatinine Clearance 45 mL/min (70-130); Calcium 8.2 mg/dL (7.8-10.44); Carbon Dioxide 21 mmol/L (23-31); Chloride 115 mmol/L (98-107); Estimated GFR 34; Glucose 315 mg/dL (83-110); Potassium 4.6 mmol/L (3.5-5.1); Sodium 143 mmol/L (136-145)
[2022-02-27 06:02] LABS: BUN (Urea Nitrogen) 122 mg/dL (8.4-25.7)
[2022-02-27 06:07] LABS: Anisocytosis SLIGHT = 6-15 cells (100X) (0-5/hpf); Band 7 % (5-11); Eosinophils 1 % (0-10); Hemoglobin 7.1 g/dL (14.0-18.0); Lymphocytes 2 % (21-51); MDiff Complete? YES; Mean Corpuscular Hemoglobin 31.5 pg (27.0-31.0); Mean Corpuscular Volume 95.7 fL (78.0-98.0); Mean Platelet Volume 9.3 fL (7.4-10.4); Monocytes 8 % (0-10); Neutrophil 82 % (42-75); Platelet Count 220 thou/uL (130-400); Platelet Morphology Comment Appears Adequate; RBC Distribution Width 16.1 % (11.5-14.5); Red Blood Cell (RBC) Count 2.26 mill/uL (4.70-6.10); White Blood Cell (WBC) Count 22.2 thou/uL (4.8-10.8)
[2022-02-27 07:13] LABS: CO2 Tension 34.5 mmHg (35.0-45.0); pH, Arterial 7.45 (7.35-7.45)
[2022-02-27 07:14] LABS: Actual Bicarbonate (HCO3a) 23.4 mEq/L (22-28); Base Excess (BEa) -0.5 mEq/L (-2.0 to +3.0); Carboxyhemoglobin (COHb) 0.3 gm% (0.0-3.0); Hemoglobin (Hb) 7.1 g/dL (14.0-18.0); O2 Tension (PaO2), arterial 57.7 mmHg (> 70.0); Potassium - ABG Lab 4.53 mmol/L (3.70-5.30); Puncture Site LRA
[2022-02-27 07:15] LABS: ALV-art Gradient 255.675 mmHg (0-20)
[2022-02-27] MEDS: Pantoprazole 40 MG VIAL IVP SCH (09:11)
[2022-02-27] MEDS: Zinc Sulfate 220 MG CAP PO SCH (09:11)
[2022-02-27] MEDS: Dexamethasone 10 MG/ML VIAL SLOW IVP SCH (09:11)
[2022-02-27] MEDS: Ferrous Sulfate 325 MG TAB PO SCH (09:11)
[2022-02-27] MEDS: Ascorbic Acid 500 mg Chewable Tablet PO SCH (09:11)
[2022-02-27] MEDS: Aspirin Chewable 81 MG TAB PO SCH (09:11)
[2022-02-27] MEDS: Cholecalciferol 1,000 UNITS (25 MCG) TAB PO SCH (09:11)
[2022-02-27] MEDS: Fentanyl CADD 100 ML IV SCH (09:35)
[2022-02-27] MEDS: Insulin Glargine 30 UNITS/0.3 ML VIAL SC SCH (10:28)
[2022-02-27] MEDS ORDERED: NPH, Human Insulin Isophane 300 UNIT/3 ML VIAL SC SCH (10:30)
[2022-02-27] MEDS: Atorvastatin Calcium 10 MG TAB PO SCH (21:11)
[2022-02-27] MEDS: NPH, Human Insulin Isophane 300 UNIT/3 ML VIAL SC SCH (21:20)
[2022-02-28] MEDS: HumaLOG 300 UNITS/3 ML VIAL SC PRN ×4 (01:02→17:48)
[2022-02-28] MEDS ORDERED: Fentanyl CADD 100 ML ONE (02:59)
[2022-02-28] MEDS: Midazolam HCl 2 mg/2 ml Vial SLOW IVP PRN ×3 (03:04→07:56)
[2022-02-28] MEDS: Fentanyl CADD 100 ML IV SCH (03:15)
[2022-02-28 05:15] LABS: #Eosinphils 0.1 thou/uL (0.0-0.7); #Lymphocytes 0.7 thou/uL (1.20-3.40); #Monocytes 1.4 thou/uL (0.11-0.59); #Neutrophils 15.2 thou/uL (1.40-6.50); %Eosinophils 0.5 % (0.0-10.0); %Lymphocytes 4.3 % (21.0-51.0); %Monocytes 7.8 % (0.0-10.0); %Neutrophils 87.5 % (42.0-75.0); Mean Corpuscular HGB CONC 32.5 g/dL (32.0-36.0); Mean Corpuscular Hemoglobin 30.9 pg (27.0-31.0); Mean Corpuscular Volume 95.1 fL (78.0-98.0); Mean Platelet Volume 9.1 fL (7.4-10.4); Platelet Count 175 thou/uL (130-400); RBC Distribution Width 14.6 % (11.5-14.5); Red Blood Cell (RBC) Count 2.25 mill/uL (4.70-6.10); White Blood Cell (WBC) Count 17.4 thou/uL (4.8-10.8)
[2022-02-28 05:41] LABS: Anion Gap 13 mmol/L (10-20); BUN (Urea Nitrogen) 118 mg/dL (8.4-25.7); Calc. Creatinine Clearance 50 mL/min (70-130); Carbon Dioxide 25 mmol/L (23-31); Chloride 115 mmol/L (98-107); Estimated GFR 37; Glucose 235 mg/dL (83-110); Potassium 4.5 mmol/L (3.5-5.1); Sodium 148 mmol/L (136-145)
[2022-02-28] MEDS: Sodium Bicarbonate 150 MEQ in Dextrose 5% in Water 1,000 ML IV SCH (05:44)
[2022-02-28 07:14] LABS: Actual Bicarbonate (HCO3a) 26.1 mEq/L (22-28); Base Excess (BEa) 2.1 mEq/L (-2.0 to +3.0); CO2 Tension 37.8 mmHg (35.0-45.0); Calcium, Ionized (arterial) 1.17 mmol/L (1.12-1.30); Carboxyhemoglobin (COHb) 0.6 gm% (0.0-3.0); Hemoglobin (Hb) 7.9 g/dL (14.0-18.0); Potassium - ABG Lab 4.46 mmol/L (3.70-5.30); pH, Arterial 7.46 (7.35-7.45)
[2022-02-28 07:22] LABS: O2 Tension (PaO2), arterial 48.8 mmHg (> 70.0); Puncture Site LRA
[2022-02-28] MEDS: Ascorbic Acid 500 mg Chewable Tablet PO SCH (09:40)
[2022-02-28] MEDS: Aspirin Chewable 81 MG TAB PO SCH (09:40)
[2022-02-28] MEDS: Zinc Sulfate 220 MG CAP PO SCH (09:40)
[2022-02-28] MEDS: Ferrous Sulfate 325 MG TAB PO SCH (09:40)
[2022-02-28] MEDS: Pantoprazole 40 MG VIAL IVP SCH (09:40)
[2022-02-28] MEDS: NPH, Human Insulin Isophane 300 UNIT/3 ML VIAL SC SCH ×2 (09:41→20:51)
[2022-02-28] MEDS: Cholecalciferol 1,000 UNITS (25 MCG) TAB PO SCH (09:44)
[2022-02-28] MEDS: Dexamethasone 10 MG/ML VIAL SLOW IVP SCH (09:45)
[2022-02-28] MEDS: Dextrose 5% in Water 1,000 ML IV SCH (11:35)
[2022-02-28] MEDS: Atorvastatin Calcium 10 MG TAB PO SCH (20:50)
[2022-03-01] MEDS: HumaLOG 300 UNITS/3 ML VIAL SC PRN ×4 (00:28→17:19)
[2022-03-01] MEDS: Fentanyl CADD 100 ML IV SCH (01:06)
[2022-03-01 05:09] LABS: Anion Gap 13 mmol/L (10-20); BUN (Urea Nitrogen) 109 mg/dL (8.4-25.7); Calc. Creatinine Clearance 50 mL/min (70-130); Calcium 8.1 mg/dL (7.8-10.44); Carbon Dioxide 23 mmol/L (23-31); Chloride 115 mmol/L (98-107); Estimated GFR 38; Glucose 233 mg/dL (83-110); Potassium 4.6 mmol/L (3.5-5.1); Sodium 146 mmol/L (136-145)
[2022-03-01 06:15] LABS: Band 4 % (5-11); Hemoglobin 10.4 g/dL (14.0-18.0); Lymphocytes 5 % (21-51); MDiff Complete? YES; Mean Corpuscular HGB CONC 33.4 g/dL (32.0-36.0); Mean Corpuscular Hemoglobin 31.7 pg (27.0-31.0); Mean Platelet Volume 9.6 fL (7.4-10.4); Monocytes 4 % (0-10); Neutrophil 87 % (42-75); Platelet Count 215 thou/uL (130-400); RBC Distribution Width 15.7 % (11.5-14.5); Red Blood Cell (RBC) Count 3.27 mill/uL (4.70-6.10); White Blood Cell (WBC) Count 26.9 thou/uL (4.8-10.8)
[2022-03-01] MEDS: Dextrose 5% in Water 1,000 ML IV SCH (06:17)
[2022-03-01 07:04] LABS: Actual Bicarbonate (HCO3a) 25.4 mEq/L (22-28); Base Excess (BEa) 1.4 mEq/L (-2.0 to +3.0); CO2 Tension 37.9 mmHg (35.0-45.0); Calcium, Ionized (arterial) 1.16 mmol/L (1.12-1.30); Carboxyhemoglobin (COHb) 0.3 gm% (0.0-3.0); Hemoglobin (Hb) 12.5 g/dL (14.0-18.0); O2 Tension (PaO2), arterial 65.1 mmHg (> 70.0); Potassium - ABG Lab 4.48 mmol/L (3.70-5.30); pH, Arterial 7.44 (7.35-7.45)
[2022-03-01 07:07] LABS: ALV-art Gradient 279.675 mmHg (0-20); Puncture Site RRA
[2022-03-01] MEDS: Ascorbic Acid 500 mg Chewable Tablet PO SCH (08:15)
[2022-03-01] MEDS: Dexamethasone 10 MG/ML VIAL SLOW IVP SCH (08:15)
[2022-03-01] MEDS: Ferrous Sulfate 325 MG TAB PO SCH (08:15)
[2022-03-01] MEDS: Aspirin Chewable 81 MG TAB PO SCH (08:15)
[2022-03-01] MEDS: Zinc Sulfate 220 MG CAP PO SCH (08:15)
[2022-03-01] MEDS: Cholecalciferol 1,000 UNITS (25 MCG) TAB PO SCH (08:17)
[2022-03-01] MEDS: Pantoprazole 40 MG VIAL IVP SCH (08:20)
[2022-03-01] MEDS: NPH, Human Insulin Isophane 300 UNIT/3 ML VIAL SC SCH ×2 (08:21→19:52)
[2022-03-01] MEDS: Midazolam HCl 2 mg/2 ml Vial SLOW IVP PRN ×4 (09:17→22:05)
[2022-03-01] MEDS: Dexmedetomidine 1,000 MCG in Sodium Chloride 0.9% 250 ML 240 ML IVPB SCH (19:51)
[2022-03-01] MEDS: Atorvastatin Calcium 10 MG TAB PO SCH (19:51)
[2022-03-02] MEDS: Dextrose 5% in Water 1,000 ML IV SCH ×2 (01:18→17:25)
[2022-03-02] MEDS: Midazolam HCl 2 mg/2 ml Vial SLOW IVP PRN (01:36)
[2022-03-02 04:01] LABS: #Lymphocytes 0.4 thou/uL (1.20-3.40); #Monocytes 1.1 thou/uL (0.11-0.59); #Neutrophils 16.8 thou/uL (1.40-6.50); %Basophils 0.1 % (0.0-1.0); %Eosinophils 0.2 % (0.0-10.0); %Monocytes 5.9 % (0.0-10.0); %Neutrophils 91.8 % (42.0-75.0); Hemoglobin 8.5 g/dL (14.0-18.0); Mean Corpuscular HGB CONC 31.8 g/dL (32.0-36.0); Mean Corpuscular Volume 97.5 fL (78.0-98.0); Mean Platelet Volume 9.3 fL (7.4-10.4); Platelet Count 138 thou/uL (130-400); Red Blood Cell (RBC) Count 2.73 mill/uL (4.70-6.10); White Blood Cell (WBC) Count 18.3 thou/uL (4.8-10.8)
[2022-03-02 04:21] LABS: Anion Gap 10 mmol/L (10-20); BUN (Urea Nitrogen) 104 mg/dL (8.4-25.7); Calc. Creatinine Clearance 54 mL/min (70-130); Calcium 7.7 mg/dL (7.8-10.44); Carbon Dioxide 26 mmol/L (23-31); Chloride 114 mmol/L (98-107); Estimated GFR 41; Glucose 128 mg/dL (83-110); Potassium 4.8 mmol/L (3.5-5.1); Sodium 145 mmol/L (136-145)
[2022-03-02] MEDS: Fentanyl CADD 100 ML IV SCH ×2 (04:25→17:27)
[2022-03-02] MEDS: Dexmedetomidine 1,000 MCG in Sodium Chloride 0.9% 250 ML 240 ML IVPB SCH ×2 (07:52→16:37)
[2022-03-02] MEDS: Ferrous Sulfate 325 MG TAB PO SCH (08:28)
[2022-03-02] MEDS: Zinc Sulfate 220 MG CAP PO SCH (10:26)
[2022-03-02] MEDS: Pantoprazole 40 MG VIAL IVP SCH (10:26)
[2022-03-02] MEDS: Aspirin Chewable 81 MG TAB PO SCH (10:26)
[2022-03-02] MEDS: Ascorbic Acid 500 mg Chewable Tablet PO SCH (10:26)
[2022-03-02] MEDS: Dexamethasone 10 MG/ML VIAL SLOW IVP SCH (10:31)
[2022-03-02] MEDS: Cholecalciferol 1,000 UNITS (25 MCG) TAB PO SCH (10:32)
[2022-03-02] MEDS: NPH, Human Insulin Isophane 300 UNIT/3 ML VIAL SC SCH ×2 (10:32→21:48)
[2022-03-02] MEDS ORDERED: Triple Antibiotic Oint 1 GM Packet TOP PRN (12:41)
[2022-03-02] MEDS ORDERED: Fentanyl CADD 100 ML ONE (17:18)
[2022-03-02] MEDS: Atorvastatin Calcium 10 MG TAB PO SCH (21:46)
[2022-03-03] MEDS: Dexmedetomidine 1,000 MCG in Sodium Chloride 0.9% 250 ML 240 ML IVPB SCH ×3 (02:06→19:25)
[2022-03-03 05:17] LABS: Anion Gap 12 mmol/L (10-20); BUN (Urea Nitrogen) 110 mg/dL (8.4-25.7); Calc. Creatinine Clearance 50 mL/min (70-130); Calcium 7.9 mg/dL (7.8-10.44); Carbon Dioxide 24 mmol/L (23-31); Chloride 112 mmol/L (98-107); Estimated GFR 38; Glucose 181 mg/dL (83-110); Potassium 5.4 mmol/L (3.5-5.1); Sodium 143 mmol/L (136-145)
[2022-03-03] MEDS: HumaLOG 300 UNITS/3 ML VIAL SC PRN ×3 (05:56→18:55)
[2022-03-03 06:09] LABS: #Lymphocytes 0.5 thou/uL (1.20-3.40); #Monocytes 0.7 thou/uL (0.11-0.59); #Neutrophils 16.3 thou/uL (1.40-6.50); %Eosinophils 0.1 % (0.0-10.0); %Neutrophils 92.9 % (42.0-75.0); Hemoglobin 9.2 g/dL (14.0-18.0); Mean Corpuscular HGB CONC 31.2 g/dL (32.0-36.0); Mean Corpuscular Volume 96.3 fL (78.0-98.0); Platelet Count 140 thou/uL (130-400); RBC Distribution Width 15.8 % (11.5-14.5); Red Blood Cell (RBC) Count 3.05 mill/uL (4.70-6.10); White Blood Cell (WBC) Count 17.5 thou/uL (4.8-10.8)
[2022-03-03 06:22] LABS: Anisocytosis SLIGHT = 6-15 cells (100X) (0-5/hpf)
[2022-03-03] MEDS ORDERED: Fentanyl CADD 100 ML ONE (06:59)
[2022-03-03] MEDS: Fentanyl CADD 100 ML IV SCH ×2 (07:04→19:08)
[2022-03-03] MEDS ORDERED: Insulin Regular 300 UNITS/3 ML VIAL IVP SCH (08:15)
[2022-03-03] MEDS ORDERED: Dextrose 50% Abboject 50 ML SYRINGE SLOW IVP SCH (08:15)
[2022-03-03] MEDS: Ascorbic Acid 500 mg Chewable Tablet PO SCH (08:44)
[2022-03-03] MEDS: Zinc Sulfate 220 MG CAP PO SCH (08:44)
[2022-03-03] MEDS: Aspirin Chewable 81 MG TAB PO SCH (08:44)
[2022-03-03] MEDS: Pantoprazole 40 MG VIAL IVP SCH (08:44)
[2022-03-03] MEDS: Ferrous Sulfate 325 MG TAB PO SCH (08:45)
[2022-03-03] MEDS: Dexamethasone 10 MG/ML VIAL SLOW IVP SCH (08:58)
[2022-03-03] MEDS: Cholecalciferol 1,000 UNITS (25 MCG) TAB PO SCH (08:59)
[2022-03-03] MEDS: NPH, Human Insulin Isophane 300 UNIT/3 ML VIAL SC SCH ×2 (09:03→21:22)
[2022-03-03] MEDS ORDERED: LOKELMA 10 GM PACKET PO SCH (11:00)
[2022-03-03 13:43] LABS: Anion Gap 13 mmol/L (10-20); BUN (Urea Nitrogen) 105 mg/dL (8.4-25.7); Calc. Creatinine Clearance 51 mL/min (70-130); Calcium 7.8 mg/dL (7.8-10.44); Carbon Dioxide 23 mmol/L (23-31); Chloride 111 mmol/L (98-107); Estimated GFR 39; Glucose 262 mg/dL (83-110); Potassium 5.1 mmol/L (3.5-5.1); Sodium 142 mmol/L (136-145)
[2022-03-03] MEDS: Midazolam HCl 2 mg/2 ml Vial SLOW IVP PRN ×2 (18:59→20:12)
[2022-03-03] MEDS: Dextrose 5% in Water 1,000 ML IV SCH (19:23)
[2022-03-03] MEDS: Vecuronium 10 MG VIAL IV PRN (19:32)
[2022-03-03] MEDS: Atorvastatin Calcium 10 MG TAB PO SCH (21:21)
[2022-03-04] MEDS: Dexmedetomidine 1,000 MCG in Sodium Chloride 0.9% 250 ML 240 ML IVPB SCH ×3 (00:18→18:37)
[2022-03-04 04:39] LABS: Anion Gap 12 mmol/L (10-20); BUN (Urea Nitrogen) 108 mg/dL (8.4-25.7); Calc. Creatinine Clearance 54 mL/min (70-130); Calcium 7.5 mg/dL (7.8-10.44); Carbon Dioxide 22 mmol/L (23-31); Chloride 110 mmol/L (98-107); Estimated GFR 41; Glucose 214 mg/dL (83-110); Potassium 5.3 mmol/L (3.5-5.1); Sodium 139 mmol/L (136-145)
[2022-03-04 04:56] LABS: #Lymphocytes 0.3 thou/uL (1.20-3.40); #Monocytes 0.7 thou/uL (0.11-0.59); #Neutrophils 12.5 thou/uL (1.40-6.50); %Basophils 0.1 % (0.0-1.0); %Lymphocytes 2.5 % (21.0-51.0); %Neutrophils 92.4 % (42.0-75.0); Hemoglobin 8.5 g/dL (14.0-18.0); Mean Corpuscular HGB CONC 30.9 g/dL (32.0-36.0); Mean Corpuscular Hemoglobin 30.2 pg (27.0-31.0); Mean Corpuscular Volume 97.9 fL (78.0-98.0); Mean Platelet Volume 9.8 fL (7.4-10.4); Platelet Count 102 thou/uL (130-400); Platelet Morphology Comment Appears Decreased; RBC Distribution Width 15.2 % (11.5-14.5); Red Blood Cell (RBC) Count 2.82 mill/uL (4.70-6.10); White Blood Cell (WBC) Count 13.5 thou/uL (4.8-10.8)
[2022-03-04] MEDS: Fentanyl CADD 100 ML IV SCH (05:19)
[2022-03-04] MEDS: HumaLOG 300 UNITS/3 ML VIAL SC PRN ×3 (05:20→22:24)
[2022-03-04] MEDS: Ascorbic Acid 500 mg Chewable Tablet PO SCH (09:00)
[2022-03-04] MEDS: Zinc Sulfate 220 MG CAP PO SCH (09:00)
[2022-03-04] MEDS: Aspirin Chewable 81 MG TAB PO SCH (09:00)
[2022-03-04] MEDS: Dexamethasone 10 MG/ML VIAL SLOW IVP SCH (09:01)
[2022-03-04] MEDS: Ferrous Sulfate 325 MG TAB PO SCH (09:01)
[2022-03-04] MEDS: Cholecalciferol 1,000 UNITS (25 MCG) TAB PO SCH (09:01)
[2022-03-04] MEDS: Pantoprazole 40 MG VIAL IVP SCH (09:16)
[2022-03-04] MEDS: NPH, Human Insulin Isophane 300 UNIT/3 ML VIAL SC SCH ×2 (09:17→19:57)
[2022-03-04] MEDS: Dextrose 5% in Water 1,000 ML IV SCH (09:56)
[2022-03-04] MEDS: Midazolam HCl 2 mg/2 ml Vial SLOW IVP PRN (10:28)
[2022-03-04] MEDS ORDERED: Furosemide 40 MG/4 ML VIAL SLOW IVP SCH ×2 (12:30→20:00)
[2022-03-04] MEDS ORDERED: Fentanyl CADD 100 ML ONE (17:28)
[2022-03-04] MEDS: Atorvastatin Calcium 10 MG TAB PO SCH (19:56)
[2022-03-05] MEDS: Dexmedetomidine 1,000 MCG in Sodium Chloride 0.9% 250 ML 240 ML IVPB SCH ×3 (01:26→16:01)
[2022-03-05 04:43] LABS: #Lymphocytes 0.5 thou/uL (1.20-3.40); #Monocytes 0.7 thou/uL (0.11-0.59); #Neutrophils 15.8 thou/uL (1.40-6.50); %Eosinophils 0.2 % (0.0-10.0); %Lymphocytes 2.6 % (21.0-51.0); %Monocytes 4.3 % (0.0-10.0); %Neutrophils 92.9 % (42.0-75.0); Hemoglobin 9.1 g/dL (14.0-18.0); Mean Corpuscular HGB CONC 30.8 g/dL (32.0-36.0); Mean Corpuscular Volume 97.5 fL (78.0-98.0); Mean Platelet Volume 10.2 fL (7.4-10.4); Platelet Count 108 thou/uL (130-400); RBC Distribution Width 15.1 % (11.5-14.5); Red Blood Cell (RBC) Count 3.04 mill/uL (4.70-6.10)
[2022-03-05] MEDS: Fentanyl CADD 100 ML IV SCH ×2 (04:56→16:01)
[2022-03-05 04:58] LABS: ALT (SGPT) 93 U/L (8-55); AST (SGOT) 56 U/L (5-34); Albumin 1.8 g/dL (3.4-4.8); Alkaline Phosphatase 102 U/L (40-110); Anion Gap 12 mmol/L (10-20); BUN (Urea Nitrogen) 123 mg/dL (8.4-25.7); Bilirubin, Total 0.4 mg/dL (0.2-1.2); Calc. Creatinine Clearance 50 mL/min (70-130); Calcium 7.6 mg/dL (7.8-10.44); Carbon Dioxide 23 mmol/L (23-31); Chloride 110 mmol/L (98-107); Estimated GFR 37; Globulin 3.1 g/dL (2.4-3.5); Glucose 128 mg/dL (83-110); Potassium 5.3 mmol/L (3.5-5.1); Protein, Total 4.9 g/dL (5.8-8.1); Sodium 140 mmol/L (136-145)
[2022-03-05] MEDS: Dexamethasone 10 MG/ML VIAL SLOW IVP SCH (07:41)
[2022-03-05] MEDS: Zinc Sulfate 220 MG CAP PO SCH (07:41)
[2022-03-05] MEDS: Ascorbic Acid 500 mg Chewable Tablet PO SCH (07:41)
[2022-03-05] MEDS: Ferrous Sulfate 325 MG TAB PO SCH (07:41)
[2022-03-05] MEDS: Pantoprazole 40 MG VIAL IVP SCH (07:42)
[2022-03-05] MEDS: NPH, Human Insulin Isophane 300 UNIT/3 ML VIAL SC SCH ×2 (07:42→23:34)
[2022-03-05] MEDS: Cholecalciferol 1,000 UNITS (25 MCG) TAB PO SCH (07:42)
[2022-03-05] MEDS: Aspirin Chewable 81 MG TAB PO SCH (07:42)
[2022-03-05] MEDS: Polyethylene Glycol 3350 17 GM Packet PO SCH (07:42)
[2022-03-05 07:45] LABS: Actual Bicarbonate (HCO3a) 23.4 mEq/L (22-28); CO2 Tension 47.8 mmHg (35.0-45.0); Calcium, Ionized (arterial) 1.12 mmol/L (1.12-1.30); Carboxyhemoglobin (COHb) 0.1 gm% (0.0-3.0); Hemoglobin (Hb) 9.7 g/dL (14.0-18.0); Potassium - ABG Lab 5.08 mmol/L (3.70-5.30); pH, Arterial 7.31 (7.35-7.45)
[2022-03-05 07:56] LABS: O2 Tension (PaO2), arterial 58.7 mmHg (> 70.0)
[2022-03-05 07:57] LABS: Puncture Site RRA
[2022-03-05] MEDS ORDERED: Furosemide 40 MG TAB PO SCH (09:00)
[2022-03-05] MEDS ORDERED: Furosemide 100 MG/10 ML VIAL SLOW IVP SCH (09:45)
[2022-03-05 11:30] VITALS: BMI 30.4
[2022-03-05] MEDS ORDERED: Fentanyl CADD 100 ML ONE (15:10)
[2022-03-05] MEDS: Midazolam HCl 2 mg/2 ml Vial SLOW IVP PRN ×3 (16:49→22:34)
[2022-03-05] MEDS: Atorvastatin Calcium 10 MG TAB PO SCH (19:39)
[2022-03-05] MEDS: Furosemide 100 MG/10 ML VIAL SLOW IVP SCH (19:39)
[2022-03-05 21:23] LABS: Actual Bicarbonate (HCO3a) 23.1 mEq/L (22-28); Base Excess (BEa) -5.5 mEq/L (-2.0 to +3.0); Calcium, Ionized (arterial) 1.14 mmol/L (1.12-1.30); Hemoglobin (Hb) 11.2 g/dL (14.0-18.0); Potassium - ABG Lab 5.35 mmol/L (3.70-5.30)
[2022-03-05 21:27] LABS: CO2 Tension 60.6 mmHg (35.0-45.0)
[2022-03-05 21:28] LABS: Puncture Site LBA
[2022-03-06] MEDS: Dexmedetomidine 1,000 MCG in Sodium Chloride 0.9% 250 ML 240 ML IVPB SCH ×3 (00:10→17:42)
[2022-03-06] MEDS: Fentanyl CADD 100 ML IV SCH ×2 (02:31→12:58)
[2022-03-06 04:27] LABS: Hemoglobin 10.6 g/dL (14.0-18.0); Mean Corpuscular HGB CONC 30.5 g/dL (32.0-36.0); Mean Corpuscular Volume 98.4 fL (78.0-98.0); Mean Platelet Volume 9.7 fL (7.4-10.4); Platelet Count 177 thou/uL (130-400); Red Blood Cell (RBC) Count 3.52 mill/uL (4.70-6.10); White Blood Cell (WBC) Count 19.8 thou/uL (4.8-10.8)
[2022-03-06 04:38] LABS: Anion Gap 15 mmol/L (10-20); Calc. Creatinine Clearance 42 mL/min (70-130); Carbon Dioxide 23 mmol/L (23-31); Chloride 110 mmol/L (98-107); Estimated GFR 31; Glucose 66 mg/dL (83-110); Potassium 5.7 mmol/L (3.5-5.1); Sodium 142 mmol/L (136-145)
[2022-03-06 04:49] LABS: BUN (Urea Nitrogen) 126 mg/dL (8.4-25.7)
[2022-03-06 05:20] LABS: Band 41 % (5-11); Lymphocytes 1 % (21-51); MDiff Complete? YES; Metamyelocyte 1 % (0-0); Neutrophil 57 % (42-75)
[2022-03-06] MEDS ORDERED: Vancomycin 1.5 GRAM/300 ML BAG 1.5 GM in Premix Bag 1 BAG IVPB SCH (08:15)
[2022-03-06] MEDS ORDERED: Meropenem 1 GM in Sodium Chloride 0.9% 100 ML IVPB SCH ×4 (08:15→20:00)
[2022-03-06] MEDS ORDERED: Vancomycin 1 GM, Admixture Fee 1 EACH in Premix Bag 1 BAG IVPB SCH (09:00)
[2022-03-06] MEDS ORDERED: Enoxaparin Sodium 40 MG/0.4 ML SYRINGE SC SCH (09:00)
[2022-03-06] MEDS ORDERED: LOKELMA 10 GM PACKET PER TUBE SCH (09:00)
[2022-03-06] MEDS ORDERED: Micafungin 100 MG in Sodium Chloride 0.9% 100 ML IVPB SCH (09:00)
[2022-03-06] MEDS: Ferrous Sulfate 325 MG TAB PO SCH (09:04)
[2022-03-06] MEDS: Ascorbic Acid 500 mg Chewable Tablet PO SCH (09:04)
[2022-03-06] MEDS: Aspirin Chewable 81 MG TAB PO SCH (09:04)
[2022-03-06] MEDS: Dexamethasone 10 MG/ML VIAL SLOW IVP SCH (09:04)
[2022-03-06] MEDS: Cholecalciferol 1,000 UNITS (25 MCG) TAB PO SCH (09:05)
[2022-03-06] MEDS: Zinc Sulfate 220 MG CAP PO SCH (09:05)
[2022-03-06] MEDS: Furosemide 100 MG/10 ML VIAL SLOW IVP SCH (09:05)
[2022-03-06] MEDS: Pantoprazole 40 MG VIAL IVP SCH (09:06)
[2022-03-06] MEDS: Polyethylene Glycol 3350 17 GM Packet PO SCH (09:08)
[2022-03-06] MEDS: NPH, Human Insulin Isophane 300 UNIT/3 ML VIAL SC SCH (11:01)
[2022-03-06] MEDS ORDERED: Dextrose 10% in Water 1,000 ML IV SCH (11:30)
[2022-03-06 13:24] VITALS: TEMP 97.7
[2022-03-06 18:30] VITALS: BP 89/40
[2022-03-06] MEDS ORDERED: Midazolam HCl 2 mg/2 ml Vial SLOW IVP PRN (19:35)
[2022-03-06] MEDS ORDERED: Morphine 4 MG/ML VIAL SLOW IVP PRN (19:35)
== END 2022-03-06 20:11 | disposition expired | DRG 870 ==
LOC: ERS 12:22 → IMCU/EMU 18:00 → CCU 20:12
PROVIDERS: ADMIT Internal Medicine; ATTEND Internal Medicine
PROC: 3E03329 Introduction of Other Anti-infective into Peripheral Vein, Percutaneous Approach (ICD-10-PCS; principal; 2022-02-15)
PROC: 5A1955Z Respiratory Ventilation, Greater than 96 Consecutive Hours (ICD-10-PCS; 2022-02-15)
PROC: XW033E5 Introduction of Remdesivir Anti-infective into Peripheral Vein, Percutaneous Approach, New Technology Group 5 (ICD-10-PCS; 2022-02-15)
PROC: 5A09357 Assistance with Respiratory Ventilation, Less than 24 Consecutive Hours, Continuous Positive Airway Pressure (ICD-10-PCS; 2022-02-15)
PROC: 8E0ZXY6 Isolation (ICD-10-PCS; 2022-02-15)
PROC: 0BH17EZ Insertion of Endotracheal Airway into Trachea, Via Natural or Artificial Opening (ICD-10-PCS; 2022-02-15)
PROC: XW0DXM6 Introduction of Baricitinib into Mouth and Pharynx, External Approach, New Technology Group 6 (ICD-10-PCS; 2022-02-16)
PROC: 02HV33Z Insertion of Infusion Device into Superior Vena Cava, Percutaneous Approach (ICD-10-PCS; 2022-02-26)
PROC: B548ZZA Ultrasonography of Superior Vena Cava, Guidance (ICD-10-PCS; 2022-02-26)
PROC: 3E04329 Introduction of Other Anti-infective into Central Vein, Percutaneous Approach (ICD-10-PCS; 2022-02-26)
PROC: 30233N1 Transfusion of Nonautologous Red Blood Cells into Peripheral Vein, Percutaneous Approach (ICD-10-PCS; 2022-02-27)
PROC: 0W9930Z Drainage of Right Pleural Cavity with Drainage Device, Percutaneous Approach (ICD-10-PCS; 2022-03-05)
DX: A41.89 Other specified sepsis (principal); J80 Acute respiratory distress syndrome; U07.1 COVID-19; I21.A1 Myocardial infarction type 2; J12.82 Pneumonia due to coronavirus disease 2019; G93.41 Metabolic encephalopathy; D65 Disseminated intravascular coagulation [defibrination syndrome]; J15.9 Unspecified bacterial pneumonia; N17.9 Acute kidney failure, unspecified; E87.2 Acidosis; I42.8 Other cardiomyopathies; N18.4 Chronic kidney disease, stage 4 (severe); E87.0 Hyperosmolality and hypernatremia; E87.1 Hypo-osmolality and hyponatremia; J93.83 Other pneumothorax; Z66 Do not resuscitate; Z51.5 Encounter for palliative care; K21.9 Gastro-esophageal reflux disease without esophagitis; I25.10 Atherosclerotic heart disease of native coronary artery without angina pectoris; E11.65 Type 2 diabetes mellitus with hyperglycemia; E78.00 Pure hypercholesterolemia, unspecified; D63.1 Anemia in chronic kidney disease; E11.22 Type 2 diabetes mellitus with diabetic chronic kidney disease; I12.9 Hypertensive chronic kidney disease with stage 1 through stage 4 chronic kidney disease, or unspecified chronic kidney disease; E87.70 Fluid overload, unspecified; E88.09 Other disorders of plasma-protein metabolism, not elsewhere classified; I08.3 Combined rheumatic disorders of mitral, aortic and tricuspid valves; R65.20 Severe sepsis without septic shock; E87.5 Hyperkalemia; E87.8 Other disorders of electrolyte and fluid balance, not elsewhere classified; I48.0 Paroxysmal atrial fibrillation; Z78.1 Physical restraint status; Z28.310 Unvaccinated for COVID-19; Z79.02 Long term (current) use of antithrombotics/antiplatelets; Z79.84 Long term (current) use of oral hypoglycemic drugs; Z79.899 Other long term (current) drug therapy; Z95.5 Presence of coronary angioplasty implant and graft; Z98.890 Other specified postprocedural states; Z87.891 Personal history of nicotine dependence; Z28.21 Immunization not carried out because of patient refusal
CPT/HCPCS: 36415; 36416; 36430; 36600; 71045; 80048; 80053; 80076; 80202; 82040; 82553; 82728; 82805; 83036; 83605; 83615; 83735; 83880; 84145; 84484; 85025; 85027; 85049; 85300; 85362; 85379; 85384; 85610; 85730; 86140; 86850; 86900; 86901; 87040; 87070; 87205; 93005; 93010; 93306; 94002; 94003; 94660; 96361; 96374; C9113; J0248; J0456; J0610; J0692; J0696; J1100; J1650; J1815; J1940; J2185; J2248; J2250; J2270; J2704; J3010; J3370; J3490; J7050; J7070; J7999; P9016